=== PATIENT | female | born 1975 | race Two or more races ===

== ENCOUNTER → 2021-01-09 08:00 | Outpatient (CLI) | payer OTHER | END | disposition home or self-care (01) | LOC: LAB 08:00 → CIR.AMB 01-16 08:02 → EDSTATUS 01-16 12:30 → CIR.AMB 01-16 12:30 | PROVIDERS: ATTEND Obstetrics & Gynecology Obstetrics | DX: N95.0 Postmenopausal bleeding (principal); Z20.822 Contact with and (suspected) exposure to COVID-19 ==